=== PATIENT | female | born 1975 | race Caucasian/White ===

== ENCOUNTER 2019-03-01 06:10 | Day surgery (SDC) ==
[2019-02-23 16:16] LABS: URINE SOURCE CLEAN CATCH
[2019-02-23 16:21] LABS: BASO# 0.04 X1000 (0.0-0.2); BASO% 0.8 % (0.0-0.8); EOS# 0.13 X1000 (0.0-0.7); EOS% 2.5 % (0.0-10.0); HEMATOCRIT 37.8 % (37.0-47.0); HEMOGLOBIN 12.6 g/dL (12.0-16.0); LYMPH# 1.89 X1000 (1.2-3.4); LYMPH% 35.7 % (20.5-51.1); MCH 30.1 PG (27-31); MCHC 33.3 g/dL (33-37); MCV 90.4 FL (81-99); MONO% 5.7 % (1.7-9.3); MPV 9.5 FL (7.4-10.4); NEUT# 2.93 X1000 (1.4-6.5); NEUT% 55.3 % (42.2-75.2); PLT 240 X1000 (130-400); RBC 4.18 XMIL (4.2-5.4); WBC 5.29 X1000 (4.8-10.8)
[2019-02-23 16:36] LABS: BILIRUBIN URINE NEGATIVE (NEGATIVE); BLOOD URINE NEGATIVE (NEGATIVE); COLOR YELLOW; GLUCOSE URINE NEGATIVE (NEGATIVE); KETONE URINE NEGATIVE (NEGATIVE); LEUKOCYTES URINE NEGATIVE (NEGATIVE); NITRITE URINE NEGATIVE (NEGATIVE); PH URINE 6.5; PROTEIN URINE NEGATIVE (NEGATIVE); SP GRAVITY URINE 1.018; TURBIDITY URINE CLEAR (CLEAR); UROBILINOGEN URINE NORMAL (NORMAL)
[2019-02-23 16:37] LABS: UR EPITHELIAL CELLS <10 /HPF (<10); URINE BACTERIA NEGATIVE /HPF; URINE RBC <10 /HPF (<10); URINE WBC <10 /HPF (<10)
[2019-02-23 16:47] LABS: POTASSIUM 3.9 mmol/L (3.5-5.1)
[2019-03-01] MEDS ORDERED: METROGEL-VAGINAL 0.75% GEL ONE (06:17)
[2019-03-01] MEDS ORDERED: NS 250 ML ONE (06:17)
[2019-03-01] MEDS ORDERED: LR 1,000 ML ONE ×2 (06:17→06:32)
[2019-03-01] MEDS ORDERED: BACITRACIN ONE (06:18)
[2019-03-01] MEDS ORDERED: EXPAREL 1.3% ONE (06:18)
--- NOTE | 2019-03-01 06:18 | HISTORY AND PHYSICAL ---
HISTORY OF PRESENT ILLNESS: Mrs. 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 The patient reports a history of heavy menstrual bleeding in 2012 which was treated with an endometrial ablation. Prior to ablation, the patient reports having a bilateral tubal ligation. However, status post ablation the patient experienced cyclical abdominal pain. She describes treating pain with NSAIDs. However, status post gastric bypass the patient was unable to continue NSAID use. Reports Tylenol not managing pain, and declines use of contraceptive methods i.e. Nexplanon to assist with pain. The patient is scheduled for a tummy tuck with Dr. Girard and desires laparoscopic hysterectomy with said procedure. PAST MEDICAL HISTORY: Abnormal uterine bleeding heavy menstrual bleeding, post ablation tubal ligation syndrome, and gastroesophageal reflux disease. PAST SURGICAL HISTORY: Back surgery, endometrial ablation, bilateral tubal ligation, and gastric bypass. ALLERGIES: NSAIDs reaction, gastric upset. Shellfish reaction, gastric upset. MEDICATIONS: 1. Ferrous sulfate 325 mg p.o. daily. 2. Vitamin B12 1000 mcg sublingual daily. 3. Multivitamin tablet 1 tab p.o. daily. 4. Omeprazole 40 mg p.o. daily. 5. Vortioxetine 20 mg p.o. daily. OBSTETRICAL HISTORY: G1, P1, one prior full-term vaginal delivery. No complications. Baby weighed 6 pounds. HOT [employer] WORKER HISTORY: Denies STD exposure. History of abnormal uterine bleeding and heavy menstrual bleeding, resolved with endometrial ablation. Menarche at age 13. Last menstrual period 02/17/2019. Last Pap smear March of 2018, negative for intraepithelial lesions or malignancy. Last mammogram 03/26/2018 negative. SOCIAL HISTORY: Denies tobacco use, alcohol use, or drug use. FAMILY HISTORY: Mother with small cell carcinoma. PHYSICAL EXAMINATION: VITAL SIGNS: Temperature 97.8 degrees Fahrenheit, pulse rate 71, respiration rate 16, blood pressure 111/59, and O2 sats 100% on room air. Weight 130 pounds, height 5 feet 4 inches tall. Body mass index 22.3 kg/m2. GENERAL: No acute distress. Alert, awake, and oriented x3. RESPIRATORY: Clear to auscultation. Negative rhonchi, rales or wheezing. CARDIOVASCULAR: Regular rate and rhythm. Positive S1, S2. ABDOMEN: Soft and nontender to palpation. Positive bowel sounds in all 4 quadrants. EXTREMITIES: Negative calf tenderness. Negative edema. PELVIC: External exam normal. Bimanual exam normal. Negative uterine dehiscence. No cervical motion. negative adnexal masses LABS: WBC: 5.29 Hgb: 12.6 Hct: 37.8 Plt: 240 Cr: 0.6 : negative ASSESSMENT: Mrs. Zarco is a 43-year-old G1, P1, with post ablation tubal ligation syndrome. PLAN: 1. Schedule for Laparoscopic Hysterectomy with Bilateral Salpingectomy 2. Reviewed risks benefits and alternatives to procedure. Risks not limited to conversion to open procedure, infection, bleeding, injury to surrounding organs including bowel, bladder or ureters 3. Patient agrees to above procedure 4. Will admit over night for pain management 5. IV antibiotic for prophylaxis [facility]
[2019-03-01] MEDS ORDERED: REGLAN ONE (06:31)
[2019-03-01] MEDS ORDERED: TRANSDERM-SCOP ONE (06:31)
[2019-03-01] MEDS ORDERED: SENSORCAINE 0.5%-EPI 1:200,000 ONE (06:31)
[2019-03-01] MEDS ORDERED: PEPCID ONE (06:31)
[2019-03-01] MEDS ORDERED: VALIUM ONE (06:32)
[2019-03-01] MEDS ORDERED: KEFZOL 1 GM/D5W 2 GM/100 ML IVPB ONE (06:32)
[2019-03-01] MEDS ORDERED: VERSED ONE (06:42)
[2019-03-01] MEDS ORDERED: DIPRIVAN 1% ONE (06:42)
[2019-03-01] MEDS ORDERED: SUFENTA ONE (06:42)
[2019-03-01] MEDS ORDERED: QUELICIN (DOSE) ONE (06:43)
[2019-03-01] MEDS ORDERED: NORCURON ONE ×2 (06:43→07:38)
[2019-03-01] MEDS ORDERED: SODIUM CHLORIDE 0.9% 10 ML ONE ×2 (06:43→14:17)
[2019-03-01] MEDS ORDERED: ROBINUL ONE ×2 (06:43→07:38)
[2019-03-01] MEDS ORDERED: STERILE WATER INJ. ONE (06:43)
[2019-03-01] MEDS ORDERED: XYLOCAINE-MPF 2% ONE (06:43)
[2019-03-01] MEDS ORDERED: LUBRIFRESH PM OPH OINTMENT ONE (06:47)
[2019-03-01] MEDS ORDERED: ZOFRAN ONE (07:38)
[2019-03-01] MEDS ORDERED: DECADRON ONE (07:38)
[2019-03-01] MEDS ORDERED: NEOSTIGMINE ONE (07:39)
[2019-03-01 08:28] LABS: URINE SOURCE CATH
[2019-03-01 08:36] LABS: BILIRUBIN URINE NEGATIVE (NEGATIVE); BLOOD URINE NEGATIVE (NEGATIVE); COLOR YELLOW; GLUCOSE URINE NEGATIVE (NEGATIVE); KETONE URINE 10 mg/dL (NEGATIVE); LEUKOCYTES URINE NEGATIVE (NEGATIVE); NITRITE URINE NEGATIVE (NEGATIVE); PROTEIN URINE NEGATIVE (NEGATIVE); SP GRAVITY URINE 1.025; TURBIDITY URINE CLEAR (CLEAR); UROBILINOGEN URINE NORMAL (NORMAL)
[2019-03-01 08:37] LABS: UR EPITHELIAL CELLS <10 /HPF (<10); URINE BACTERIA NEGATIVE /HPF; URINE RBC <10 /HPF (<10); URINE WBC <10 /HPF (<10)
[2019-03-01] MEDS: D10W 500 ML ONE ×2 (08:43→11:16)
[2019-03-01] MEDS ORDERED: D10W 0 ML ONE (08:44)
[2019-03-01] MEDS ORDERED: KEFZOL 1 GM/D5W 1 GM/50 ML IVPB ONE (10:05)
[2019-03-01] MEDS ORDERED: NORCO-10 PO PRN (10:29)
[2019-03-01] MEDS ORDERED: MOTRIN PO PRN (10:29)
[2019-03-01] MEDS ORDERED: PHENERGAN IM PRN (10:29)
[2019-03-01] MEDS ORDERED: AMBIEN PO PRN (10:29)
[2019-03-01] MEDS ORDERED: MYLICON PO PRN (10:29)
[2019-03-01] MEDS ORDERED: ZOFRAN IV PRN ×2 (10:29→17:30)
[2019-03-01] MEDS ORDERED: NEO-SYNEPHRINE ONE (14:17)
[2019-03-01] MEDS ORDERED: TORADOL IV SCH (16:33)
[2019-03-01] MEDS ORDERED: HYDROGEN PEROXIDE SOLUTION ONE (17:12)
[2019-03-01] MEDS ORDERED: DEMEROL ONE (17:25)
[2019-03-01] MEDS ORDERED: SODIUM CHLORIDE 0.9% INJ PRN (17:30)
[2019-03-01] MEDS ORDERED: PHENERGAN IV PRN (17:30)
[2019-03-01] MEDS ORDERED: NARCAN IV PRN (17:30)
[2019-03-01] MEDS ORDERED: BENADRYL IV PRN (17:30)
[2019-03-01] MEDS: NS IV PRN (18:30)
[2019-03-01] MEDS: DEMEROL IV PRN (18:30)
[2019-03-01 18:51] LABS: HEMOGLOBIN 11.3 g/dL (12.0-16.0); MCHC 34.2 g/dL (33-37); MCV 90.4 FL (81-99); MPV 9.7 FL (7.4-10.4); RBC 3.65 XMIL (4.2-5.4); RDW 12.3 % (11.5-14.5); WBC 15.05 X1000 (4.8-10.8)
[2019-03-01] MEDS: KEFZOL 1 GM/D5W 1 GM/50 ML IVPB IV SCH (19:09)
[2019-03-01] MEDS: OFIRMEV 1000 MG/ISOTONIC SOLN 1,000 MG/100 ML BOTTLE IV SCH (21:16)
[2019-03-01] MEDS: COLACE PO SCH (21:16)
[2019-03-01] MEDS: PERIDEX MT SCH (21:16)
[2019-03-02] MEDS: LR 1,000 ML IV SCH ×2 (02:47→04:12)
[2019-03-02] MEDS: KEFZOL 1 GM/D5W 1 GM/50 ML IVPB IV SCH ×2 (02:48→10:46)
[2019-03-02] MEDS: OFIRMEV 1000 MG/ISOTONIC SOLN 1,000 MG/100 ML BOTTLE IV SCH (03:22)
[2019-03-02] MEDS: NS IV PRN (05:37)
[2019-03-02] MEDS: DEMEROL IV PRN (05:37)
--- NOTE | 2019-03-02 06:22 | PROVIDER PROGRESS NOTE ---
- Subjective Pt is POD#1 s/p TLH. Reports pain well controlled with head shipper and IV acetaminophen. Denies ambulation and zamudio insitu. Tolerating clears, denies nausea/vomiting. Physical Exam Objective Vital Signs - 8 hr 03/02/19 00:31 03/02/19 04:00 03/02/19 06:08 Temperature 98.1 F 97.7 F Pulse Rate 85 84 90 Respiratory Rate 20 20 20 Blood Pressure 98/53 115/47 92/52 O2 Sat by Pulse Oximetry 100 100 100 - Constitutional General Appearance: appears well, alert, no apparent distress - RESPIRATORY Respiratory: lungs clear, normal breath sounds - CARDIOVASCULAR Cardiovascular: regular rate, rhythm - GASTROINTESTINAL (ABDOMEN) Abdominal Exam: non tender, soft (LAILA drains x [address]) - MUSCULOSKELETAL Extremity: non-tender Active Medications Generic Name Dose Route Start Last Admin Trade Name Freq PRN Reason Stop Dose Admin Hydrocodone Bitart/Acetaminophen 1 each 03/01/19 10:29 [place]-10 PO Q4H PRN PRN Pain (7-10 on Pain Scale) Chlorhexidine Gluconate 15 ml 03/01/19 21:00 03/01/19 21:16 Peridex MT 15 ml BID BALJINDER Administration Diphenhydramine HCl 12.5 - 25 mg 03/01/19 17:30 Benadryl IV Q6H PRN PRN Itching Docusate Sodium 100 mg 03/01/19 21:00 03/01/19 21:16 Colace PO 100 mg BID BALJINDER Administration Lactated Ringer's 1,000 mls @ 100 mls/hr 03/01/19 10:30 03/02/19 04:12 Lr IV Not Given .Q10H BALJINDER Acetaminophen 1,000 mg in 100 mls @ 400 mls/hr 03/01/19 16:00 03/02/19 03:22 Ofirmev 1000 Mg/Isotonic Soln IV 400 mls/hr Q6H BALJINDER Administration Cefazolin Sodium/Dextrose 1 gm in 50 mls @ 100 mls/hr 03/01/19 18:00 03/02/19 02:48 Kefzol 1 Gm/D5w IV 100 mls/hr Q8H BALJINDER Administration Meperidine HCl 300 mg/ Sodium 30 mls @ 0 mls/hr 03/01/19 17:30 03/02/19 05:37 Chloride IV 15 mls/hr PRN PRN Administration Pain As Directed Ibuprofen 800 mg 03/01/19 10:29 Motrin PO Q8H PRN PRN Pain (1-6 on Pain Scale) Naloxone HCl 0.2 mg 03/01/19 17:30 Narcan IV PRN PRN DECREASED RESPIRATORY RATE Omeprazole 40 mg 03/02/19 07:00 Prilosec PO DAILY@0700 BALJINDER Ondansetron HCl 4 mg 03/01/19 10:29 Zofran IV Q8H PRN PRN Nausea Ondansetron HCl 4 mg 03/01/19 17:30 Zofran IV Q24H PRN PRN Nausea Promethazine HCl 25 mg 03/01/19 10:29 Phenergan IM Q2-4H PRN PRN Pain (7-10 on Pain Scale) Promethazine HCl 12.5 mg 03/01/19 17:30 Phenergan IV Q6H PRN PRN Nausea Simethicone 80 mg 03/01/19 10:29 Mylicon PO PRN PRN Gas Sodium Chloride 10 ml 03/01/19 17:30 Sodium Chloride 0.9% INJ PRN PRN TO DILUTE PHENERGAN FOR IV USE Vortioxetine 20 mg 03/02/19 09:[address] [facility] Zolpidem Tartrate 5 mg 03/01/19 10:29 Ambien PO HS PRN PRN Sleep Laboratory Results - last 24 hr 03/01/19 03/01/19 03/01/19 06:43 08:26 18:28 WBC 15.05 H RBC 3.65 L Hgb 11.3 L Hct 33.0 L MCV 90.4 MCH 31.0 MCHC 34.2 RDW Std Deviation 12.3 Plt Count 177 MPV 9.7 Urine Source CATH Urine Color YELLOW Urine Turbidity CLEAR Urine pH 8.0 Ur Specific [place] 1.025 Urine Protein NEGATIVE Ur Glucose (Stick) NEGATIVE Ur Ketones (Stick) 10 A Urine Blood NEGATIVE Urine Nitrite NEGATIVE Urine Bilirubin NEGATIVE Urobilinogen Dipstick NORMAL Urine Leukocytes NEGATIVE Urine WBC (Auto) <10 Urine RBC (Auto) <10 U Epithel Cells (Auto) <10 Urine Bacteria (Auto) NEGATIVE Blood Type AB POSITIVE Antibody Screen NEGATIVE - Assessment & Plan (1) Status post laparoscopic hysterectomy Status: Acute - Progress Note Disposition: 43yo POD#1 s/p TLH with BS secondary to postablation tubal ligation syndrome. Mastopexy and abdominoplasty completed by Dr. Girard -Pain well controlled on CRISIS SPECIALIST, will d/c CRISIS SPECIALIST and start PO pain meds. Will control with [place] -HD stable -OOB to ambulation -Advance diet as tolerated -Colace daily -plan for d/c home today and will f/u in the office on 03/06/2019
[2019-03-02 06:51] LABS: EOS# 0.16 X1000 (0.0-0.7); EOS% 1.2 % (0.0-10.0); HEMATOCRIT 28.7 % (37.0-47.0); HEMOGLOBIN 9.5 g/dL (12.0-16.0); IMM GRAN# 0.03 X1000 (0.0-0.04); IMM GRAN% 0.2 % (0.0-0.5); LYMPH# 0.63 X1000 (1.2-3.4); LYMPH% 4.9 % (20.5-51.1); MCHC 33.1 g/dL (33-37); MCV 90.5 FL (81-99); MONO# 0.75 X1000 (0.11-0.59); MONO% 5.8 % (1.7-9.3); MPV 9.7 FL (7.4-10.4); NEUT# 11.39 X1000 (1.4-6.5); NEUT% 87.9 % (42.2-75.2); PLT 186 X1000 (130-400); RBC 3.17 XMIL (4.2-5.4); RDW 11.9 % (11.5-14.5); WBC 12.96 X1000 (4.8-10.8)
[2019-03-02] MEDS ORDERED: PRILOSEC PO SCH (07:00)
--- NOTE | 2019-03-02 07:09 | OPERATIVE NOTE ---
PROCEDURE DATE: 03/01/2019 PROCEDURE PERFORMED: Cosmetic skin abdominoplasty and cosmetic Christianson mastopexy. SURGEON: Asher Girard MD. The ICD 10 diagnosis code for this case is Z41.1, cosmetic surgery. [place] 55298-J, cosmetic abdominoplasty, 95208, mastopexy, 78236-07, mastopexy on the other side. INDICATION FOR PROCEDURE: This patient is a 43-year-old, white female who has lost weight after having a gastric sleeve. She lost about 95 pounds. She is unhappy with the extra skin on her abdomen and her ptotic breasts. She is an excellent candidate for a skin abdominoplasty and a cosmetic Christianson mastopexy. She needs to have a hysterectomy and she wants to have it done at the same time as her other cosmetic surgeries so she can have one postoperative recovery. I sent her to Dr. Altamirano, who is going to do a laparoscopic-assisted vaginal hysterectomy. That will be done before the start of the case. She was seen in my office for informed consent on 02/23/2019. At that point, she understood that she would have a cosmetic abdominoplasty and the goals of this procedure was to excise and tighten the skin on her lower abdomen. She understands that exact size and shape cannot be guaranteed, and that we would be doing the skin but we would not be tightening her muscles. She knows the risks include infection, blood loss, blood clots in the legs, heart problems, lung problems, allergic reactions, or blood and serum collections in the operative sites which might require drainage. She understands the exact size and shape cannot be guaranteed, as with nonoperative abdomens, there can be some asymmetry from side to side. She knows her skin incisions will be from waist to waist, and around the umbilicus. That is where the scars will be. She knows we will use her old umbilicus and bring it through a new hole. She knows her lower abdominal sensation will be decreased for a year or a year and a half. She knows she cannot do anything strenuous while she is healing and she cannot have a breast reconstruction with a TRAM flap in the future. She knows this is cosmetic surgery and does not go to her insurance company. She also had a bilateral Christianson mastopexy after the abdominoplasty was done. She understands the goal of this procedure was to tighten the skin and lift the breast tissue but not necessarily make the breasts bigger, just to reshape things. She understands we might need to take a little bit of tissue off the right side because it is bigger. She knows all the general risks of the same which include infection, blood loss, blood clots in the legs, heart problems, lung problems, allergic reactions, or blood and serum collections in the operative sites which might require drainage. The exact size and shape cannot be guaranteed. She knows her skin incisions will be around the areola, from the areola into the inframammary fold, and within the inframammary fold. That is where the scars will be. She knows her nipples will be transfers as the pedicles on the mastopexy tissue. Nipple sensation can be decreased. She knows she has to continue to have mammography in the future. DESCRIPTION OF PROCEDURE: The patient was brought to the operating room after she was marked in outpatient surgery for the breast and the abdomen. She went to the operating room and had general anesthesia. Then the hanley were reviewed with Dr. Altamirano in terms of inserting the ports. I let Dr. Altamirano complete her part of the operation. Then the patient was repositioned, and then re- prepped and draped. The abdomen was done first. The hanley were remarked to make sure they were adequate. Then the upper ayo was cut with a knife and then dissected with electrocautery towards the costal margin. She was put in a flexed position. The ability to reach the lower incision was confirmed. Some adjustments were made in the lower incision, making it lower laterally and a little higher in the midline to decrease the tension. That incision was then made with a knife and then the skin was removed from lateral to medially with electrocautery, cutting around the umbilicus with a 15 blade. Hemostasis was achieved with electrocautery. She was irrigated with bacitracin solution. Some areas that were cauterized for bleeders were also reinforced with a [id number] 3-0 Vicryl stitch. Exparel was placed into the subcutaneous tissue of the lower incision for postoperative pain control. She was then tacked closed over three drains with silk sutures. Liposuction was done at the corner of the flaps. She was closed with interrupted 2-0 Polysorb interrupted sutures in the fat and then a running 3-0 Polysorb deep dermal suture, followed by running 4-0 Biosyn subcuticular stitch. The drains were secured with silk drain stitches. The umbilicus was brought through a V-shaped incision, and then a V-shaped defect was made inferiorly and it was inset with a preplaced 4-0 Polysorb suture, then 5-0 Polysorb interrupted deep dermal sutures, followed by a 5-0 nylon stitches placed in either a simple fashion or a half-buried horizontal mattress fashion. At that point, the abdomen was finished. The patient was tolerating the procedure well so we planned to go ahead and do the Christianson mastopexy. The hanley were remarked, temporally tacked closed with silk sutures to make sure they were adequate and not too tight, and it felt like they were adequate so then those sutures were removed. The nipples were marked with a 38 mm nipple-areola marker. Everything in the W pattern was deepithelialized. The upper breast skin flaps were incised with a knife and then dissected with electrocautery to make upper breast skin flaps approximately 1.[address] to the pectoralis major muscle. She was put in the sitting position and irrigated with bacitracin solution. Hemostasis was achieved with electrocautery. Then the breasts were shaped by sewing the breast tissue in an arch to the pectoralis major muscle. This was done all across on both sides to make it symmetrical. She was a little bit bigger on the right side so a small amount of breast tissue was removed from the lateral anterior surface to decrease the size and make it match the left side. She was closed with some interrupted 3-0 Polysorb deep dermal sutures at the junction of the flaps, followed by a running 3-0 Polysorb deep dermal suture, followed by a running 4-0 Biosyn subcuticular stitch. The drains were secured with silk drain stitches. She was put in the sitting position. The left nipple exit was marked with a 38 mm nipple-areola marker. This was deepithelialized, then cut in a cruciate excision to allow protrusion of the nipples. The nipples were inset with 3-0 and 4-0 Polysorb interrupted deep dermal sutures, followed by running 4-0 Biosyn subcuticular stitch. She tolerated the procedure well. The total amount of resection for the abdominal skin was 658 g. She had 100 mL of liposuction. cc: Asher Girard MD
[2019-03-02] MEDS ORDERED: PERCOCET-5 PO PRN (07:29)
[2019-03-02 07:45] LABS: EOS 1 % (1-10); LYMPHS 4 % (21-51); MONO 6 % (1-9); SEGS 89 % (42-75)
[2019-03-02] MEDS ORDERED: TRINTELLIX PO SCH (09:00)
[2019-03-02] MEDS: PERIDEX MT SCH (09:08)
[2019-03-02] MEDS: COLACE PO SCH (09:08)
[2019-03-02 12:24] VITALS: BP 108/57
[2019-03-02] MEDS ORDERED: LOVENOX SUBQ ONE (12:39)
[2019-03-02] MEDS ORDERED: PERCOCET-5 PO ONE (12:44)
--- NOTE | 2019-03-03 07:24 | OPERATIVE NOTE ---
PROCEDURE DATE: 03/01/2019 SURGEON: Barbara Altamirano DO COLORS CUSTODIAN: Jeancarlos Carlos III, MD. PREOPERATIVE DIAGNOSIS: Dysmenorrhea/post ablative tubal ligation syndrome. POSTOPERATIVE DIAGNOSIS: Dysmenorrhea/post ablative tubal ligation syndrome. PROCEDURE PERFORMED: Laparoscopic total hysterectomy with bilateral salpingectomy ANESTHESIA: General endotracheal anesthesia. ESTIMATED BLOOD LOSS: 100 mL. FINDINGS: 9 cm sized uterus anteverted with no adnexal masses. SPECIMENS REMOVED: Cervix and uterus. DESCRIPTION OF PROCEDURE: The patient was taken to the operating room where a time out was performed to confirm correct patient and correct procedure. The patient was given preoperative prophylactic intravenous antibiotics. General anesthesia was established. The patient was then positioned on the operating table in a dorsal lithotomy position with the legs supported using Dimitri type stirrups. The patient was then prepped and draped in the usual sterile fashion. A bimanual exam was performed, and the uterus found to be approximately 9 cm in size, anteverted and mobile with no significant adnexal masses on palpation. The Bradley catheter was inserted into the bladder and a weighted speculum was inserted into the vagina. The VCare uterine manipulator was inserted through the cervix into the uterus after sounding the uterus and finding it to be approximately 8 cm from the cervix to fundus. Attention was then turned to the abdomen where a small vertical incision was made infraumbilical. The Veress needle was introduced into the peritoneum. Placement of the needle was confirmed using normal saline solution. Pneumoperitoneum was established with approximately 15 mmHg pressure of carbon dioxide. The Veress needle was then removed. A 5 mm trocar and sleeve via Visiport was inserted with the laparoscope into the peritoneum under direct visualization. Laparoscopic visualization was confirmed through intraperitoneal insertion ports. Pneumoperitoneum was maintained using carbon dioxide. Subsequently, 2 additional small incisions were made approximately 8 cm to the left and right of the infraumbilical incision, and approximately 2 cm below. Two more 5 mm ports were introduced under direct visualization at the 2 additional incision sites. Attention was then turned to the right adnexal area where the right fallopian tube was identified, and grasped using the LigaSure device. The mesosalpinx below the fallopian tube was coagulated and cut for complete removal of the right fallopian tube. In a similar fashion, the left fallopian tube was removed using the LigaSure device. Both fallopian tubes were noted to have a tubal ligation clip on located at the ampulla site, and removed with the tube. Both tubes were placed in the cul-de-sac for removal later in the procedure. Attention was then turned back to the right side of the uterus where the round ligament was located. The LigaSure device was then used to coagulate and cut the round ligament. The anterior leaf of the broad ligament was coagulated and cut using LigaSure device and extended down towards the lower uterine segment where the right side of the bladder flap was developed. In a similar fashion, the round ligament on the left side was coagulated and cut using the LigaSure device and the anterior leaf of the broad ligament was coagulated and cut down towards the lower uterine segment where the left side of the bladder flap was developed. Attention then was turned to the right side of the uterine ovarian ligament. The right ureter was identified and well out of the surgical field. The right uterine ligament was coagulated and cut using the LigaSure device. In a similar fashion, the left ureter was identified well out of the surgical field and the left utero-ovarian ligament coagulated and cut using the LigaSure device. Attention was turned back to the bladder flap that was further pushed down, and then attention was turned to the right uterine artery which was coagulated and cut using the LigaSure device. In a similar fashion, the left uterine artery was coagulated and cut using the LigaSure device. The uterus was elevated using the uterine manipulator while coagulation and cutting occurred at the uterine artery location. With continued uterine elevation using the uterine manipulator, the colpotomy incision was made using the monopolar J-hook device. The incision was extended circumferentially taking care to ambulate the cervix from the vagina without shortening the vaginal cuff. The uterus was then retracted into the vagina using the uterine manipulator. Prior to complete removal of the uterus through the vagina, a glove stuffed with 4x4s was placed in the vagina to maintain pneumoperitoneum when colpotomy incision was made. The uterus was removed from the vagina and the anterior and posterior edge of the vaginal cuff were identified vaginally and grasped using Allis clamps. The cuff was then closed using 0 Vicryl absorbable suture, in a figure of 8 fashion with care taken to avoid injury to the bowel or bladder. The cuff angles were sutured to the uterosacral ligaments bilaterally for good vaginal support. Following closure of the vaginal cuff, inspection of the cuff laparoscopically showed good hemostasis. There was no evidence of injury to the bladder, ureters or bowel. Pneumoperitoneum was dropped to 5 mmHg, and good hemostasis was established. The 5 mm trocars were then removed and pneumoperitoneum was evacuated. The patient was scheduled to proceed with an abdominal plasty with Dr. Girard. Incisions at port site were not closed secondary to scheduled removal of skin where incisions were placed for abdominoplasty. All needle, sponge and instrument counts were noted to be correct x2 at the end of the procedure. Patient was prepped for the next procedure with Dr. Girard. cc: Asher Girard MD
--- NOTE | 2019-03-03 10:12 | DISCHARGE SUMMARY ---
ADMISSION DATE: 02/28/2019 DISCHARGE DATE: 03/01/2019 ADMISSION DIAGNOSIS: Need for hysterectomy and removal of excess skin from the lower abdomen and correct breast ptosis. DISCHARGE DIAGNOSIS: Need for hysterectomy and removal of excess skin from the lower abdomen and correct breast ptosis. HOSPITAL COURSE: The patient was admitted to the hospital via outpatient surgery where she was seen in preoperative evaluation and hanley were made to have a laparoscopic hysterectomy, skin abdominoplasty and grewal mastopexies. She went to the operating room, had an uncomplicated hysterectomy performed by Dr. Altamirano and Dr. Carlos and then she proceeded to have the abdominoplasty and the mastopexy. She has done well on the floor. She is voiding and eating. She has tried her pain pill and that is working well. Her hemoglobin on discharge is 9.5 and hematocrit of 28.7. That is low compared to her preop but it is expected with the 3 surgeries and being diluted from all the IV fluid. There is no signs of bleeding intra-abdominally, no signs bleeding in the operative sites. All the drains are functioning well. All of her prescriptions were written for her as an outpatient that included Percocet 5/325, Keflex 500 mg and Phenergan 25 mg for nausea. She will be seen in the office tomorrow by me for dressing change and again on Wednesday for dressing change and drain removal. cc: MD Barbara Alberto DO
== END 2019-03-02 13:34 | disposition home or self-care (01) ==
LOC: 4N 06:10 → PAT 06:10 → OPS 06:10 → 4N 14:40 → OPS 03-02 13:34
PROVIDERS: ATTEND Surgery Plastic and Reconstructive Surgery